=== PATIENT | male | born 1955 | race Caucasian/White ===

== ENCOUNTER 2016-05-03 13:50 | Inpatient (IN) | payer BC, OTHER ==
[~2016-05-03] VITALS: Ht 172.7 cm; Wt 83.1 kg
[2016-05-03 14:30] LABS: BASO % 0.1 %; BASO ABS # 0.01 K/uL (0-0.2); COMPLETE YES; EOS % 0.4 %; HEMATOCRIT 45.1 % (42-52); IG% 0.1 %; LYMPH % 21.8 %; LYMPH ABS # 1.48 K/uL (1.2-3.4); MEAN CELL VOLUME 91.3 fL (80-100); MEAN CORPUSCULAR HEMOGLOBIN 32.2 pg (25-34); MEAN CORPUSCULAR HGB CONC 35.3 g/dl (32-36); MEAN PLATELET VOLUME 10.3 fL (7.4-10.4); MONO % 6.5 %; NEUT % 71.1 %; PLATELET COUNT 264 K/uL (130-400); RED BLOOD COUNT 4.94 M/uL (4.7-6.1)
[2016-05-03 14:36] LABS: BLOOD UREA NITROGEN 13 mg/dl (7-18); CREATININE 0.92 mg/dl (0.60-1.40); GLUCOSE 96 mg/dl (70-99)
[2016-05-03 14:37] LABS: BUN/CREATININE RATIO 13.9 (10-20); CARBON DIOXIDE 24 mmol/L (21-32); CHLORIDE 106 mmol/L (98-107); POTASSIUM 3.7 mmol/L (3.5-5.1); SODIUM 140 mmol/L (136-145)
[2016-05-03 14:38] LABS: PROTHROMBIN TIME (PATIENT) 10.6 SECONDS (9.0-12.0)
[2016-05-03 14:41] LABS: CKMB/CK RATIO 1.8 (0-3.0)
--- NOTE | 2016-05-03 14:55 | DIAGNOSTIC IMAGING REPORT ---
CT OF THE HEAD WITHOUT CONTRAST CLINICAL HISTORY: Stroke COMPARISON STUDY: No previous studies for comparison. CT DOSE: 614.27 mGy.cm TECHNIQUE: Helical axial images of the head were obtained without IV contrast. Automated exposure control was utilized for the study. FINDINGS: No acute intracranial hemorrhage, midline shift or mass effect is present. There is a 4.2 x 2.7 cm hypodense focus within the left occipital lobe with loss of villegas-white differentiation. The ventricular system is normal. The basilar cisterns are patent. There are no extra-axial collections. There is moderate mucosal thickening of the left sphenoid sinus. Mastoid air cells are clear. IMPRESSION: 4.2 x 2.7 cm hypodensity within the left occipital lobe with loss of villegas-white differentiation which suggests an acute to subacute infarct. No hemorrhage or significant mass effect. Electronically signed by: Ishaan Teixeira M.D. 05/03/2016 2:54 PM Dictated Date/Time: 05/03/2016 2:49 PM
[2016-05-03] MEDS ORDERED: PHARMACIST DISCHARGE MED REC CONSULT PRN (15:45)
[2016-05-03] MEDS ORDERED: ONDANSETRON INJ 2 MG/ML 2 ML VIAL IV PRN (15:45)
[2016-05-03] MEDS ORDERED: ASPIRIN 325 MG ECTAB PO ONE (16:00)
[2016-05-03 16:10] VITALS: O2SAT 96; Ht 172.7 cm; Wt 83.1 kg
--- NOTE | 2016-05-03 16:36 | History and Physical ---
History & Physical Date & Time of Service: May 03, 2016 at 16:09 Chief Complaint: Right Visual Field Defect Primary Care Physician: Victor Hugo Zacarias M.D. History of Present Illness 60 year old female who presents to the ER with right visual field deficit. 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 Patient reports his symptoms began yesterday afternoon while he was driving his truck. He reports he noticed having difficulty seeing his right visual field. He noticed that it was with objects that were close and also only when both eyes were open. When he would close one eye the symptoms resolved. He also reports an associated left temporal headache. He denies any blurred vision or double vision. He reports he felt fatigued yesterday. He denies any unilateral weakness, numbness, or tingling. He notes left calf pain a couple of days ago that has since resolved. He was evaluated by his eye doctor today who was concerned for CVA and sent the patient to the ER for further evaluation. Patient denies chest pain and shortness of breath. No lightheadedness, dizziness , diaphoresis, or syncopal events. He denies abdominal pain, nausea, vomiting, or diarrhea. No fever or chills. Denies any urinary symptoms. In the ER, patient had a CT head that is showing left occipital lobe CVA. Past Medical/Surgical History Surgical Problems: (1) H/O hernia repair Status: Chronic Family History FH: multiple myeloma FATHER Social History Smoking Status: Former Smoker Alcohol Use: occasionally Immunizations History of Influenza Vaccine: Yes Influenza Vaccine Date: Jan 19, 2016 History of Tetanus Vaccine?: Yes Tetanus Immunization Date: Jul 26, 2009 Allergies Coded Allergies: No Known Allergies (Unverified , 05/03/16) Home Medications No Active Prescriptions or Reported Meds Review of Systems 10 point review of systems was completed with the pertinent positives and negatives noted per the HPI Physical Exam Vital Signs Date Time Temp Pulse Resp B/P Pulse Ox O2 Delivery O2 Flow Rate FiO2 05/03/16 15:28 153/87 05/03/16 15:20 60 19 96 05/03/16 15:01 163/87 05/03/16 14:55 175/81 05/03/16 14:33 83 20 161/93 96 Room Air 05/03/16 14:23 161/93 1/18/17 14:20 79 16 05/03/16 14:17 77 05/03/16 13:54 36.8 77 18 159/89 95 Room Air General Appearance: WD/WN, no apparent distress Head: normocephalic, atraumatic Eyes: normal inspection, PERRL, EOMI, + pertinent finding (Anisocoria, Decreased visual field ) ENT: normal ENT inspection, hearing grossly normal, TMs normal, pharynx normal Neck: supple, no adenopathy, trachea midline Respiratory/Chest: chest non-tender, lungs clear, normal breath sounds, no respiratory distress, no accessory muscle use Cardiovascular: regular rate, rhythm, no edema, no gallop, no JVD, no murmur, normal peripheral pulses Abdomen/GI: normal bowel sounds, non tender, soft, no organomegaly, no pulsatile mass Back: normal inspection, no CVA tenderness Extremities/Musculoskelatal: normal inspection, no calf tenderness, no pedal edema, non-tender, pelvis stable Neurologic/Psych: 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 tested, alert, normal mood/affect, normal reflexes, oriented x 3, + pertinent finding (Anisocoria, Decreased visual field) Skin: normal color, warm/dry, no rash Lymphatic: no adenopathy Diagnostics Laboratory Results Results Past 24 Hours Test 05/03/16 14:10 Range/Units White Blood Count 6.80 4.8-10.8 K/uL Red Blood Count 4.94 4.7-6.1 M/uL Hemoglobin 15.9 14.0-18.0 g/dL Hematocrit 45.1 42-52 % Mean Corpuscular Volume 91.3 80-100 fL Mean Corpuscular Hemoglobin 32.2 25-34 pg Mean Corpuscular Hemoglobin Concent 35.3 32-36 g/dl Platelet Count 264 130-400 K/uL Mean Platelet Volume 10.3 7.4-10.4 fL Neutrophils (%) (Auto) 71.1 % Lymphocytes (%) (Auto) 21.8 % Monocytes (%) (Auto) 6.5 % Eosinophils (%) (Auto) 0.4 % Basophils (%) (Auto) 0.1 % Neutrophils # (Auto) 4.83 1.4-6.5 K/uL Lymphocytes # (Auto) 1.48 1.2-3.4 K/uL Monocytes # (Auto) 0.44 0.11-0.59 K/uL Eosinophils # (Auto) 0.03 0-0.5 K/uL Basophils # (Auto) 0.01 0-0.2 K/uL RDW Standard Deviation 44.0 36.4-46.3 fL RDW Coefficient of Variation 13.2 11.5-14.5 % Immature Granulocyte % (Auto) 0.1 % Immature Granulocyte # (Auto) 0.01 0.00-0.02 K/uL Prothrombin Time 10.6 9.0-12.0 SECONDS Prothromb Time International Ratio 1.0 0.9-1.1 Activated Partial Thromboplast Time 25.2 21.0-31.0 SECONDS Partial Thromboplastin Ratio 1.0 Sodium Level 140 136-145 mmol/L Potassium Level 3.7 3.5-5.1 mmol/L Chloride Level 106 98-107 mmol/L Carbon Dioxide Level 24 21-32 mmol/L Anion Gap 10.0 3-11 mmol/L Blood Urea Nitrogen 13 7-18 mg/dl Creatinine 0.92 0.60-1.40 mg/dl Est Creatinine Clear Calc Drug Dose 89.8 ml/min Estimated GFR () 103.7 Estimated GFR (Non- 89.5 BUN/Creatinine Ratio 13.9 10-20 Random Glucose 96 70-99 mg/dl Calcium Level 9.0 8.5-10.1 mg/dl Total Creatine Kinase 129 39-308 U/L Creatine Kinase MB 2.3 0.5-3.6 ng/ml Creatine Kinase MB Ratio 1.8 0-3.0 Troponin I < 0.015 0-0.045 ng/ml Diagnostic Radiology CT HEAD IMPRESSION: 4.2 x 2.7 cm hypodensity within the left occipital lobe with loss of villegas-white differentiation which suggests an acute to subacute infarct. No hemorrhage or significant mass effect. 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 He states noticing difficulty seeing in his right visual field which started at yesterday afternoon. He visited an [facility] who diagnosed him to have Hemianopsia, central quadrantopia and suggested to get further eval to r/o CVA. Patient had CT head which showed left occipital lobe CVA. Also states associated mild left sided temporal headache and left calf pain 2 days ago. He is a former smoker and quit 30 yrs ago. Denies any other relevant positive history. Physical Exam: Vital signs as noted above General: WB/WN. no distress HEENT: NC/AT, EOMI, PERRLA, Anisocoria, + visual field defect Neck: Supple, No JVD CVS: s1, S2, No murmur Resp: CTA, no accessory muscle use Abd: Soft, Non tender, BS present, no organomegaly DIRECTOR OF REHABILITATION: No focal deficits other than + Anisocoria, + visual field defect Ext: No cyanosis, clubbing, pedal edema Skin: Warm, intact Lymphadenopathy: No lymphadenopathy noted Assessment and Plan: Acute Left occipital lobe CVA: Not a candidate for tPA: out of window period Start on Aspirin, Lipitor Stroke work up including MRI/MRA, Echo, Venous duplex LE Neuro checks, Neurology consult Check lipid panel Agree with assessment and plan of Barb Go NP VTE Prophylaxis VTE Risk Assessment Done? Y/N: Yes Risk Level: Moderate
--- NOTE | 2016-05-03 17:14 | DIAGNOSTIC IMAGING REPORT ---
Brain MRA HISTORY: Stroke - Attention to [place] TECHNIQUE: 3-D [id number] MRA of the brain was performed without contrast. COMPARISON STUDY: None. FINDINGS: Visualized intracranial internal carotid arteries, distal vertebral arteries, and basilar artery are widely patent. There is no significant stenosis, occlusion, or aneurysm seen within the bilateral ACAs, MCAs, or er manager. IMPRESSION: No significant stenosis, occlusion, or aneurysm within the [place]. Electronically signed by: Luther Berrios M.D. 05/03/2016 5:12 PM Dictated Date/Time: 05/03/2016 5:10 PM
--- NOTE | 2016-05-03 17:28 | EMERGENCY ROOM VISIT NOTE ---
History First contact with patient: 14:00 Chief Complaint: HYPERTENSION Stated Complaint: HIGH BLOOD PRESSURE History of Present Illness The patient is a 60 year old male who presents to the Emergency Room with complaints of a visual field defect. 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 He states that he initially thought that the symptoms would resolve, but they were persisting when he woke up this morning. He went to the chiropractor, thinking that there may be an issue with his neck, but states that nothing resolved. He then made an appointment with his education paraprofessional. He states that he was told his blood pressure was high and that there were issues with his vision which could indicate that he had a stroke. The patient has persistent visual field defects in the right side of his vision. He denies any other symptoms. He denies any past medical history and does not take any medications on a daily basis. The patient denies headache, neck pain, chest pain, shortness of breath, numbness, weakness, confusion, or slurred speech. Review of Systems A complete 10-point Review of Systems was discussed with the patient, with pertinent positives and negatives listed in the History of Present Illness. All remaining Review of Systems questions can be considered negative unless otherwise specified. Past Medical/Surgical History Surgical Problems: (1) H/O hernia repair Family History FH: multiple myeloma FATHER Social History Smoking Status: Former Smoker Current/Historical Medications No Active Prescriptions or Reported Meds Allergies Coded Allergies: No Known Allergies (Unverified , 05/03/16) Physical Exam Vital Signs Date Time Temp Pulse Resp B/P Pulse Ox O2 Delivery O2 Flow Rate FiO2 05/03/16 16:30 184/91 05/03/16 16:28 63 20 97 05/03/16 16:23 69 24 96 05/03/16 16:10 96 Room Air 05/03/16 15:28 153/87 05/03/16 15:20 60 19 96 05/03/16 15:01 163/87 05/03/16 14:55 175/81 05/03/16 14:33 83 20 161/93 96 Room Air 05/03/16 14:23 161/93 05/03/16 14:20 79 16 05/03/16 14:17 77 05/03/16 13:54 36.8 77 18 159/89 95 Room Air Pain Rating (0-10): 0 Physical Exam VITALS: Vitals are noted on the nurse's note and reviewed by myself. Vital signs stable. GENERAL: This is a 60-year-old male, in no acute distress, nondiaphoretic, well- developed well-nourished. SKIN: The skin was without rashes, erythema, edema, or bruising. There is no tenting of the skin. Capillary reflex less than 2 seconds. HEAD: Normocephalic atraumatic. EARS: External auditory canals clear, tympanic membranes pearly villegas without erythema or effusion bilaterally. EYES: Pupils equal round and reactive to light and accommodation. Extraocular movements intact. There is a reported right sided visual field defect. MOUTH: Mucous membranes moist. Tonsils are not enlarged. Pharynx without erythema or exudate. Tongue does not deviate. NECK: Supple without nuchal rigidity. No lymphadenopathy. No thyromegaly. Cervical spine is nontender. No JVD. HEART: Regular rate and rhythm without murmurs gallops or rubs. LUNGS: Clear to auscultation bilaterally without wheezes, rales or rhonchi. No dullness to percussion. ABDOMEN: Soft, nontender. MUSCULOSKELETAL: No muscle atrophy, erythema, or edema noted. Full range of motion without joint tenderness in all extremities. No tenderness to palpation. Normal gait. Strength 5/5 throughout. NEURO: Patient was alert and oriented to person place and time. NIH score of 1. Normal sensation to light and sharp touch. Deep tendon reflexes 2+ throughout. Negative Romberg and pronator drift. Normal rapid alternating movements. Normal finger to nose testing. Facial expressions are intact. Medical Decision & Procedures ER Provider Diagnostic Interpretation: CT OF THE HEAD WITHOUT CONTRAST CLINICAL HISTORY: Stroke COMPARISON STUDY: No previous studies for comparison. CT DOSE: 614.27 mGy.cm TECHNIQUE: Helical axial images of the head were obtained without IV contrast. Automated exposure control was utilized for the study. FINDINGS: No acute intracranial hemorrhage, midline shift or mass effect is present. There is a 4.2 x 2.7 cm hypodense focus within the left occipital lobe with loss of villegas-white differentiation. The ventricular system is normal. The basilar cisterns are patent. There are no extra-axial collections. There is moderate mucosal thickening of the left sphenoid sinus. Mastoid air cells are clear. IMPRESSION: 4.2 x 2.7 cm hypodensity within the left occipital lobe with loss of villegas-white differentiation which suggests an acute to subacute infarct. No hemorrhage or significant mass effect. Laboratory Results 05/03/16 14:10 Red Blood Count 4.94, Mean Corpuscular Volume 91.3, Mean Corpuscular Hemoglobin 32.2, Mean Corpuscular Hemoglobin Concent 35.3, Mean Platelet Volume 10.3, Neutrophils (%) (Auto) 71.1, Lymphocytes (%) (Auto) 21.8, Monocytes (%) (Auto) 6.5, Eosinophils (%) (Auto) 0.4, Basophils (%) (Auto) 0.1, Neutrophils # (Auto) 4.83, Lymphocytes # (Auto) 1.48, Monocytes # (Auto) 0.44, Eosinophils # (Auto) 0.03, Basophils # (Auto) 0.01 05/03/16 14:10 Test 05/03/16 14:10 White Blood Count 6.80 K/uL (4.8-10.8) Red Blood Count 4.94 M/uL (4.7-6.1) Hemoglobin 15.9 g/dL (14.0-18.0) Hematocrit 45.1 % (42-52) Mean Corpuscular Volume 91.3 fL (80-100) Mean Corpuscular Hemoglobin 32.2 pg (25-34) Mean Corpuscular Hemoglobin Concent 35.3 g/dl (32-36) Platelet Count 264 K/uL (130-400) Mean Platelet Volume 10.3 fL (7.4-10.4) Neutrophils (%) (Auto) 71.1 % Lymphocytes (%) (Auto) 21.8 % Monocytes (%) (Auto) 6.5 % Eosinophils (%) (Auto) 0.4 % Basophils (%) (Auto) 0.1 % Neutrophils # (Auto) 4.83 K/uL (1.4-6.5) Lymphocytes # (Auto) 1.48 K/uL (1.2-3.4) Monocytes # (Auto) 0.44 K/uL (0.11-0.59) Eosinophils # (Auto) 0.03 K/uL (0-0.5) Basophils # (Auto) 0.01 K/uL (0-0.2) RDW Standard Deviation 44.0 fL (36.4-46.3) RDW Coefficient of Variation 13.2 % (11.5-14.5) Immature Granulocyte % (Auto) 0.1 % Immature Granulocyte # (Auto) 0.01 K/uL (0.00-0.02) Prothrombin Time 10.6 SECONDS (9.0-12.0) Prothromb Time International Ratio 1.0 (0.9-1.1) Activated Partial Thromboplast Time 25.2 SECONDS (21.0-31.0) Partial Thromboplastin Ratio 1.0 Anion Gap 10.0 mmol/L (3-11) Est Creatinine Clear Calc Drug Dose 89.8 ml/min Estimated GFR () 103.7 Estimated GFR (Non- 89.5 BUN/Creatinine Ratio 13.9 (10-20) Calcium Level 9.0 mg/dl (8.5-10.1) Total Creatine Kinase 129 U/L (39-308) Creatine Kinase MB 2.3 ng/ml (0.5-3.6) Creatine Kinase MB Ratio 1.8 (0-3.0) Troponin I < 0.015 ng/ml (0-0.045) ECG Rate (beats per minute): 65 Rhythm: normal sinus Findings: other (LVH, incomplete RBBB) Comparison ECG Date: no prior available Medical Decision Differential diagnosis includes CVA, TIA, intracranial hemorrhage, intracranial lesion, mass effect, infection, among others. The patient was evaluated as above. Labs were drawn and IV access was obtained. Imaging studies were performed and read by radiology as above. The patient was reassessed multiple times during their stay in the emergency department and remained in stable condition. The patient is a 60-year-old male who presents today complaining of a visual field defect. The patient had seen his education paraprofessional, who had been concerned about an left occipital lobe stroke and sent him here for further evaluation. The patient has no other neurological deficits on examination. CT of the head did show findings consistent with an acute to subacute left occipital lobe CVA. Labs were obtained and are unremarkable. EKG was interpreted by myself and showed a normal sinus rhythm with no evidence of acute ischemia. The patient will be admitted for further evaluation. Case was discussed with CAROLE Weiss with the [facility]. She agreed to evaluate the patient. The patient's case was reviewed with Dr. Staples, ED attending physician, who agreed with my assessment and treatment plan. Impression Primary Impression: CVA (cerebral vascular accident) Departure Information Prescriptions No Active Prescriptions or Reported Meds Referrals Victor Hugo Zacarias M.D. (PCP) Patient Instructions My [facility]
[2016-05-03] MEDS ORDERED: MAGNEVIST IV PRN (17:45)
--- NOTE | 2016-05-03 18:17 | DIAGNOSTIC IMAGING REPORT ---
BILATERAL LOWER EXTREMITY VENOUS DOPPLER HISTORY: Bilateral calf pain COMPARISON STUDY: None. FINDINGS: There is normal compressibility, flow, and augmentation within the bilateral lower extremity deep venous systems. IMPRESSION: No DVT within the right or left lower extremity. Electronically signed by: Luther Berrios M.D. 05/03/2016 6:15 PM Dictated Date/Time: 05/03/2016 6:15 PM
[2016-05-03 18:37] VITALS: BP 174/89; PULSE 59; TEMP 36.8; O2SAT 96
[2016-05-03] MEDS: ATORVASTATIN 40 MG TAB PO SCH (19:29)
--- NOTE | 2016-05-03 19:59 | DIAGNOSTIC IMAGING REPORT ---
NECK MRA HISTORY: Left occipital lobe infarct. TECHNIQUE: [id number] and gadolinium-enhanced MRA of the neck was performed both before and after the intravenous administration of contrast. All measurements were calculated based on NASCET criteria. COMPARISON STUDY: None. FINDINGS: The aortic arch and proximal great vessels are widely patent. There is no significant stenosis, occlusion, or dissection identified within the bilateral common carotid, internal carotid, or vertebral arteries. Focal fenestration at the proximal basilar artery. IMPRESSION: No significant stenosis, occlusion, or dissection identified within the carotid or vertebral arteries. Incidental is made of a focal fenestration at the proximal basilar artery. Electronically signed by: Luther Berrios M.D. 05/03/2016 7:57 PM Dictated Date/Time: 05/03/2016 7:54 PM
[2016-05-03 20:23] VITALS: BP_SYST 162; BP_SYST 164; BP_DIAS 83; BP_DIAS 86; PULSE 63; TEMP 36.9; O2SAT 92
[2016-05-03] MEDS: ACETAMINOPHEN 325 MG TAB PO PRN (21:16)
[2016-05-03 23:42] VITALS: BP 138/75; PULSE 56; TEMP 36.8; O2SAT 95
[2016-05-04] VITALS (7 sets, daily range): BP systolic 126–160; BP diastolic 76–87; PULSE 59–72; TEMP 36.8–37.2; O2SAT 93–97
[2016-05-04 06:54] LABS: BASO % 0.1 %; BASO ABS # 0.01 K/uL (0-0.2); COMPLETE YES; EOS % 1.2 %; HEMATOCRIT 43.2 % (42-52); IG% 0.1 %; LYMPH ABS # 1.75 K/uL (1.2-3.4); MEAN CELL VOLUME 91.7 fL (80-100); MEAN CORPUSCULAR HEMOGLOBIN 31.6 pg (25-34); MEAN CORPUSCULAR HGB CONC 34.5 g/dl (32-36); MEAN PLATELET VOLUME 10.1 fL (7.4-10.4); MONO % 8.3 %; NEUT % 64.3 %; PLATELET COUNT 231 K/uL (130-400); RED BLOOD COUNT 4.71 M/uL (4.7-6.1); WHITE BLOOD COUNT 6.73 K/uL (4.8-10.8)
[2016-05-04 06:55] LABS: ESTIMATED AVERAGE GLUCOSE 114 mg/dl; HA1C FLAG Normal (Normal)
[2016-05-04 07:22] LABS: BUN/CREATININE RATIO 13.3 (10-20); CALCIUM 8.6 mg/dl (8.5-10.1); CREATININE 0.83 mg/dl (0.60-1.40); POTASSIUM 3.8 mmol/L (3.5-5.1)
[2016-05-04 07:26] LABS: CHOLESTEROL/HDL RATIO 3.3
[2016-05-04] MEDS: ATORVASTATIN 40 MG TAB PO SCH (07:56)
[2016-05-04] MEDS: ASPIRIN 81 MG ECTAB PO SCH (07:56)
--- NOTE | 2016-05-04 08:43 | DIAGNOSTIC IMAGING REPORT ---
Brain MRI WITH AND WITHOUT CONTRAST HISTORY: Blurry vision. Stroke TECHNIQUE: Multiplanar multisequence MRI of the brain was performed both before and after the intravenous administration of contrast. COMPARISON STUDY: Head CT 05/03/2016. FINDINGS: Confirmation of the 3.7 x 2.0 cm acute infarct within the left posterior medial occipital lobe. This is consistent with an acute distal left SENIOR APPLICATIONS ENGINEER territory infarct. The midline structures appear intact. There is a retention cyst within the left maxillary sinus and mild dorsal thickening within the left sphenoid sinus. The mastoid air cells are clear. Cytotoxic edema within the left occipital lobe at the site of infarct. The ventricles are normal in size. No significant mass effect or midline shift. No intracranial hemorrhage. No masses identified. The major vascular flow-voids at the skull base are well-maintained. Multiple scattered foci of T2 hyperintensity seen within the periventricular and subcortical white matter. These are nonspecific but favor mild microvascular ischemic change. Faint enhancement at the left occipital infarct. IMPRESSION: Confirmation of the left occipital lobe infarct. Faint patchy enhancement at the area of infarct favors normal post infarct changes. Follow-up brain MRI in 3 months can be performed to ensure resolution. Electronically signed by: Luther Berrios M.D. 05/03/2016 7:53 PM Dictated Date/Time: 05/03/2016 7:47 PM
[2016-05-04] MEDS: ACETAMINOPHEN 325 MG TAB PO PRN (11:14)
--- NOTE | 2016-05-04 11:49 | Progress Note ---
Subjective Date of Service: May 04, 2016. Subjective Pt evaluation today including: conversation w/ patient, physical exam, lab review, review of studies, review of inpatient medication list Saw/examined the patient in room 275 States his right visual field defect persists today No other symptoms to note Problem List Medical Problems: (1) CVA (cerebral vascular accident) Status: Acute Review of Systems Constitutional: No chills, No fever Eyes: + problem reported (right vision changes since admission) Respiratory: No cough, No shortness of breath, No sputum Cardiac: No chest pain, No edema, No palpitations Abdomen: No diarrhea, No nausea, No pain, No vomiting Neurologic: No balance problems, No memory loss, No numbness/tingling, No paralysis, No vertigo, No weakness Heme: No abnormal bleeding/bruising Medications Current Inpatient Medications Medications (Trade) Dose Ordered Sig/Florin Route Start Time Stop Time Status Last Admin Dose Admin Acetaminophen (Tylenol Tab) 650 mg Q4H PRN PO 05/03/16 15:45 06/02/16 15:44 05/04/16 11:14 650 MG Ondansetron HCl (Zofran Inj) 4 mg Q6H PRN IV 05/03/16 15:45 06/02/16 15:44 Miscellaneous Information (Pharmacist Discharge Med Rec Consult) 1 ea UD PRN N/A 05/03/16 15:45 06/02/16 15:44 Aspirin (Ecotrin Tab) 81 mg QAM PO 05/04/16 09:00 06/03/16 08:59 05/04/16 07:56 81 MG Atorvastatin Calcium (Lipitor Tab) 40 mg QAM PO 05/03/16 16:00 06/02/16 15:59 05/04/16 07:56 40 MG Gadopentetate Dimeglumine (Magnevist) 20 ml UD PRN IV 05/03/16 17:45 05/07/16 17:44 Objective Vital Signs Date Time Temp Pulse Resp B/P Pulse Ox O2 Delivery O2 Flow Rate FiO2 05/04/16 08:00 Room Air 05/04/16 07:35 37.2 61 18 160/83 95 Room Air 05/04/16 04:15 36.8 59 18 142/76 97 Room Air 05/04/16 04:00 Room Air 05/04/16 00:00 Room Air 05/03/16 23:42 36.8 56 16 138/75 95 Room Air 05/03/16 20:23 36.9 63 18 162/86 92 Room Air 164/83 05/03/16 20:00 Room Air 05/03/16 18:37 36.8 59 16 174/89 96 Room Air 05/03/16 16:30 184/91 05/03/16 16:28 63 20 97 05/03/16 16:23 69 24 96 05/03/16 16:10 96 Room Air 05/03/16 15:28 153/87 05/03/16 15:20 60 19 96 05/03/16 15:01 163/87 05/03/16 14:55 175/81 05/03/16 14:33 83 20 161/93 96 Room Air 05/03/16 14:23 161/93 05/03/16 14:20 79 16 05/03/16 14:17 77 05/03/16 13:54 36.8 77 18 159/89 95 Room Air Physical Exam General Appearance: no apparent distress Eyes: normal inspection, PERRL, EOMI ENT: hearing grossly normal Neck: supple Respiratory/Chest: chest non-tender, lungs clear, normal breath sounds, no respiratory distress, no accessory muscle use Cardiovascular: regular rate, rhythm, no edema, no murmur Abdomen: normal bowel sounds, non tender, soft Extremities: normal inspection, no pedal edema Neurologic/Psychiatric: exercise physiologist II-XII nml as tested, no motor/sensory deficits, alert, normal mood/affect, oriented x 3 Skin: normal color Lymphatic: no adenopathy Laboratory Results Last 24 Hours Test 05/03/16 14:10 05/04/16 06:28 White Blood Count 6.80 K/uL 6.73 K/uL Red Blood Count 4.94 M/uL 4.71 M/uL Hemoglobin 15.9 g/dL 14.9 g/dL Hematocrit 45.1 % 43.2 % Mean Corpuscular Volume 91.3 fL 91.7 fL Mean Corpuscular Hemoglobin 32.2 pg 31.6 pg Mean Corpuscular Hemoglobin Concent 35.3 g/dl 34.5 g/dl Platelet Count 264 K/uL 231 K/uL Mean Platelet Volume 10.3 fL 10.1 fL Neutrophils (%) (Auto) 71.1 % 64.3 % Lymphocytes (%) (Auto) 21.8 % 26.0 % Monocytes (%) (Auto) 6.5 % 8.3 % Eosinophils (%) (Auto) 0.4 % 1.2 % Basophils (%) (Auto) 0.1 % 0.1 % Neutrophils # (Auto) 4.83 K/uL 4.32 K/uL Lymphocytes # (Auto) 1.48 K/uL 1.75 K/uL Monocytes # (Auto) 0.44 K/uL 0.56 K/uL Eosinophils # (Auto) 0.03 K/uL 0.08 K/uL Basophils # (Auto) 0.01 K/uL 0.01 K/uL RDW Standard Deviation 44.0 fL 44.1 fL RDW Coefficient of Variation 13.2 % 13.2 % Immature Granulocyte % (Auto) 0.1 % 0.1 % Immature Granulocyte # (Auto) 0.01 K/uL 0.01 K/uL Prothrombin Time 10.6 SECONDS Prothromb Time International Ratio 1.0 Activated Partial Thromboplast Time 25.2 SECONDS Partial Thromboplastin Ratio 1.0 Sodium Level 140 mmol/L 141 mmol/L Potassium Level 3.7 mmol/L 3.8 mmol/L Chloride Level 106 mmol/L 107 mmol/L Carbon Dioxide Level 24 mmol/L 25 mmol/L Anion Gap 10.0 mmol/L 9.0 mmol/L Blood Urea Nitrogen 13 mg/dl 11 mg/dl Creatinine 0.92 mg/dl 0.83 mg/dl Est Creatinine Clear Calc Drug Dose 89.8 ml/min 98.8 ml/min Estimated GFR () 103.7 110.1 Estimated GFR (Non- 89.5 95.0 BUN/Creatinine Ratio 13.9 13.3 Random Glucose 96 mg/dl 100 mg/dl Estimated Average Glucose 114 mg/dl Hemoglobin A1c 5.6 % Calcium Level 9.0 mg/dl 8.6 mg/dl Total Creatine Kinase 129 U/L Creatine Kinase MB 2.3 ng/ml Creatine Kinase MB Ratio 1.8 Troponin I < 0.015 ng/ml Triglycerides Level 58 mg/dl Cholesterol Level 134 mg/dl HDL Cholesterol 41 mg/dl LDL Cholesterol, Calculated 81 mg/dl VLDL Cholesterol, Calculated 12 mg/dl Cholesterol/HDL Ratio 3.3 Assessment and Plan This is a 60 year old male presented with L occipital lobe infarct Acute Left Occipital Lobe Infarct * Head CT; Brain MRI confirmed the infarct * No motor dysfunction, no ambulation issues; no swallowing issues * Was not on any medications prior to arrival * started on aspirin and statin * would monitor on tele to r/o arrhythmias * neurology input for further recommendations DVT ppx * subq heparin FULL CODE
[2016-05-04] MEDS: HEPARIN SOD 5000 UNIT/0.5 ML CARP SQ SCH ×2 (13:52→22:20)
[2016-05-04] MEDS ORDERED: CLOPIDOGREL BISULFATE 75 MG TAB PO ONE (15:45)
--- NOTE | 2016-05-04 15:59 | Neurology Consultation ---
Neurology Consultation Date of Consultation: May 04, 2016. Attending Physician: Clive Hampton DO Primary Care Physician: Victor Hugo Zacarias M.D. Reason for Consultation: left occipital lobe CVA History of Present Illness Source: patient, spouse 60 year old male who on Sunday noticed he had neck and head pain and went to a chiropractor. His also made him an appointment to see an certified energy manager who recommended he go to the ED due to possible stroke. His blood pressure was 195/90 at the office. He also states he had a headache which was in the back of his head down his neck. 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 He has no PMH of vascular disease or heart disease. He was on no medications and did not take aspirin prior to the event. denies CP, SOB, abdominal pain, one sided weakness, numbness, tingling, N, V, swallowing issues, falls. Past Medical/Surgical History Medical Problems: (1) CVA (cerebral vascular accident) Status: Acute Social History Smoking Status: Never smoker Alcohol Use: occasionally Allergies Coded Allergies: No Known Allergies (Unverified , 05/03/16) Current Inpatient Medications Current Inpatient Medications Medications (Trade) Dose Ordered Sig/Florin Route Start Time Stop Time Status Last Admin Dose Admin Acetaminophen (Tylenol Tab) 650 mg Q4H PRN PO 05/03/16 15:45 06/02/16 15:44 05/04/16 11:14 650 MG Ondansetron HCl (Zofran Inj) 4 mg Q6H PRN IV 05/03/16 15:45 06/02/16 15:44 Miscellaneous Information (Pharmacist Discharge Med Rec Consult) 1 ea UD PRN N/A 05/03/16 15:45 06/02/16 15:44 Aspirin (Ecotrin Tab) 81 mg QAM PO 05/04/16 09:00 06/03/16 08:59 05/04/16 07:56 81 MG Atorvastatin Calcium (Lipitor Tab) 40 mg QAM PO 05/03/16 16:00 06/02/16 15:59 05/04/16 07:56 40 MG Gadopentetate Dimeglumine (Magnevist) 20 ml UD PRN IV 05/03/16 17:45 05/07/16 17:44 Heparin Sodium (Porcine) (Heparin Sq 5000 Unit/0.5ml) 5,000 unit Q8 SQ 05/04/16 14:00 06/03/16 13:59 05/04/16 13:52 5,000 UNIT Physical Exam Vital Signs (Past 24 Hrs): Date Time Temp Pulse Resp B/P Pulse Ox O2 Delivery O2 Flow Rate FiO2 05/04/16 12:02 37.2 65 18 154/87 93 05/04/16 12:00 Room Air 05/04/16 08:00 Room Air 05/04/16 07:35 37.2 61 18 160/83 95 Room Air 05/04/16 04:15 36.8 59 18 142/76 97 Room Air 05/04/16 04:00 Room Air 05/04/16 00:00 Room Air 05/03/16 23:42 36.8 56 16 138/75 95 Room Air 05/03/16 20:23 36.9 63 18 162/86 92 Room Air 164/83 05/03/16 20:00 Room Air 05/03/16 18:37 36.8 59 16 174/89 96 Room Air 05/03/16 16:30 184/91 05/03/16 16:28 63 20 97 05/03/16 16:23 69 24 96 05/03/16 16:10 96 Room Air 05/03/16 15:28 153/87 Physical Exam: Constitutional:appearance nourished, healthy and normal Ears, Nose, Mouth and Throat: mucous membranes moist, no injection and skin normal, eyes normal Cardiovascular: normal S-1 and S-2 and regular rate and rhythm Respiratory: clear to auscultation (CTA) and no rales, rhonchi or wheeze Musculoskeletal: no peripheral edema and good distal pulses Skin: no stigmata of neurocutaneous disease noted and normal and intact Eyes: extraocular muscles intact (EOMI) and pupils equal, round and reactive to light (PERRL), right central homonymous quadrantopia vision cut NEUROLOGIC EXAMINATION: Mental status: Alert and interactive Oriented to full date and location Oriented to person Speech fluent with no evidence of aphasia Cranial Nerves smile and eye brow raise symmetric, tongue midline Reflexes: Deep tendon reflexes were symmetrical and graded 2/5. Plantar responses were flexor. Sensory: no sensory deficits, to vibration or cool touch Coordination: Romberg absent Gait/Stance: Posture normal. Gait normal: with steady with steps, base, turning, and tandem gait. Motor: Negative for pronator drift of out stretched arms with eyes closed. Strength: biceps triceps deltoids hand international bank manager bilaterally 5/5 hip flex ext plantar flex ext 5/5 bilaterally 5/5 Laboratory Results Past 24 Hours: 05/04/16 06:28 Red Blood Count 4.71, Mean Corpuscular Volume 91.7, Mean Corpuscular Hemoglobin 31.6, Mean Corpuscular Hemoglobin Concent 34.5, Mean Platelet Volume 10.1, Neutrophils (%) (Auto) 64.3, Lymphocytes (%) (Auto) 26.0, Monocytes (%) (Auto) 8.3, Eosinophils (%) (Auto) 1.2, Basophils (%) (Auto) 0.1, Neutrophils # (Auto) 4.32, Lymphocytes # (Auto) 1.75, Monocytes # (Auto) 0.56, Eosinophils # (Auto) 0.08, Basophils # (Auto) 0.01 05/04/16 06:28 Test 05/04/16 06:28 White Blood Count 6.73 K/uL (4.8-10.8) Red Blood Count 4.71 M/uL (4.7-6.1) Hemoglobin 14.9 g/dL (14.0-18.0) Hematocrit 43.2 % (42-52) Mean Corpuscular Volume 91.7 fL (80-100) Mean Corpuscular Hemoglobin 31.6 pg (25-34) Mean Corpuscular Hemoglobin Concent 34.5 g/dl (32-36) Platelet Count 231 K/uL (130-400) Mean Platelet Volume 10.1 fL (7.4-10.4) Neutrophils (%) (Auto) 64.3 % Lymphocytes (%) (Auto) 26.0 % Monocytes (%) (Auto) 8.3 % Eosinophils (%) (Auto) 1.2 % Basophils (%) (Auto) 0.1 % Neutrophils # (Auto) 4.32 K/uL (1.4-6.5) Lymphocytes # (Auto) 1.75 K/uL (1.2-3.4) Monocytes # (Auto) 0.56 K/uL (0.11-0.59) Eosinophils # (Auto) 0.08 K/uL (0-0.5) Basophils # (Auto) 0.01 K/uL (0-0.2) RDW Standard Deviation 44.1 fL (36.4-46.3) RDW Coefficient of Variation 13.2 % (11.5-14.5) Immature Granulocyte % (Auto) 0.1 % Immature Granulocyte # (Auto) 0.01 K/uL (0.00-0.02) Anion Gap 9.0 mmol/L (3-11) Est Creatinine Clear Calc Drug Dose 98.8 ml/min Estimated GFR () 110.1 Estimated GFR (Non- 95.0 BUN/Creatinine Ratio 13.3 (10-20) Calcium Level 8.6 mg/dl (8.5-10.1) Triglycerides Level 58 mg/dl (0-150) Cholesterol Level 134 mg/dl (0-200) HDL Cholesterol 41 mg/dl LDL Cholesterol, Calculated 81 mg/dl VLDL Cholesterol, Calculated 12 mg/dl Cholesterol/HDL Ratio 3.[address] head-4.2 x 2.7 cm hypodensity within the left occipital lobe with loss of villegas-white differentiation which suggests an acute to subacute infarct. No hemorrhage or significant mass effect. MRA neck- No significant stenosis, occlusion, or dissection identified within the carotid or vertebral arteries. Incidental is made of a focal fenestration at the proximal basilar artery. MRA-head-No significant stenosis, occlusion, or aneurysm within the [place]. MRI brain with and without- Confirmation of the left occipital lobe infarct. Faint patchy enhancement at the area of infarct favors normal post infarct changes. Follow-up brain MRI in 3 months can be performed to ensure resolution. venous doppler- No DVT within the right or left lower extremity. Impression 60 year old male s/p left occipital lobe infarct Plan 1. aspirin 81 mg started added plavix 75 mg today and will need to take daily x 3 months, after 3 months stop plavix 75mg 2. permissive hypertension 3. TTE pending 4. statin added 5. if no signs of a fib on TTE or valvular issues will need a cardio net as out patient 6. coag workup needed 7. will need to follow up with repeat MRI in 3 months for unusual pattern of stroke 8. further recommendations to follow Pt seen and examined. mrginal incongruous right superior quadrantnopsi, otherwise nml.No prior hx of TIA/sstroke. MRi/A reviewed L in home aide infarct without vascular stenosis. Certainly raises question of cardiac embolism. If echo noncontributory and no afib while inpt rec 1 month cardionet as outpt. Pt will need to be cleared by opthal before returning to driving. Will follow with you, PHYLLIS Martin MD I have seen and discuss above patient with Dr Barbie Martin, neurology
[2016-05-05] MEDS: ACETAMINOPHEN 325 MG TAB PO PRN (03:42)
[2016-05-05 04:23] VITALS: BP 152/87; PULSE 64; TEMP 36.6; O2SAT 94
[2016-05-05] MEDS: HEPARIN SOD 5000 UNIT/0.5 ML CARP SQ SCH (05:36)
[2016-05-05 06:48] LABS: BASO % 0.5 %; BASO ABS # 0.03 K/uL (0-0.2); COMPLETE YES; IG% 0.2 %; LYMPH % 37.3 %; LYMPH ABS # 2.37 K/uL (1.2-3.4); MEAN CELL VOLUME 91.3 fL (80-100); MEAN CORPUSCULAR HEMOGLOBIN 32.1 pg (25-34); MEAN CORPUSCULAR HGB CONC 35.1 g/dl (32-36); MEAN PLATELET VOLUME 10.2 fL (7.4-10.4); MONO % 7.5 %; NEUT % 52.5 %; PLATELET COUNT 245 K/uL (130-400); RED BLOOD COUNT 4.71 M/uL (4.7-6.1); WHITE BLOOD COUNT 6.36 K/uL (4.8-10.8)
[2016-05-05 07:08] VITALS: BP 143/83; PULSE 55; TEMP 36.8; O2SAT 92
[2016-05-05 07:17] LABS: BUN/CREATININE RATIO 15.2 (10-20); CALCIUM 8.6 mg/dl (8.5-10.1); CREATININE 0.82 mg/dl (0.60-1.40); POTASSIUM 3.8 mmol/L (3.5-5.1)
[2016-05-05] MEDS: ASPIRIN 81 MG ECTAB PO SCH (07:45)
[2016-05-05] MEDS: ATORVASTATIN 40 MG TAB PO SCH (07:45)
--- NOTE | 2016-05-05 08:02 | ECHOCARDIOGRAM REPORT ---
*NOTICE TO RECEIVING [employer] This information is strictly Confidential and protected under [place] law. [place] law prohibits you from making any further disclosure of this information unless further disclosure is expressly permitted by the written consent of the person to whom it pertains or is authorized by law. A general authorization for the release of medical or other information is not sufficient for this purpose. Hospital accepts no responsibility if the information is made available to any other person, INCLUDING THE PATIENT. Interpretation Summary * Name: ASMITA RIDER Study Date: 05/04/2016 08:17 AM BP: 138/75 mmHg * Patient Location: [facility]\S\N275\S\2 HR: 95 * : 1955 (M/d/yyyy) Gender: Male Height: 67 in * Age: 60 yrs Ethnicity: CA Weight: 188 lb * Ordering Physician: Barb Go * Referring Physician: Sabina Fuller O.D. * Performed By: Nathaly Rosenthal RDCS * * Reason For Study: CVA * BSA: 2.0 m2 * The study was technically adequate. * There is no comparison study available. * -- Conclusions -- * Ejection Fraction = 65-70%. * There is mild concentric left ventricular hypertrophy. * Grade I diastolic dysfunction, (abnormal relaxation pattern). * Injection of contrast documented no interatrial shunt. * No significant valvular pathology. * Mildly dilated ascending aorta. Procedure Details * A complete two-dimensional transthoracic echocardiogram was performed (2D, M-mode, Doppler and color flow Doppler). Left Ventricle * The left ventricle is normal in size. * There is mild concentric left ventricular hypertrophy. * Ejection Fraction = 65-70%. * Left ventricular systolic function is normal. * The left ventricular wall motion is normal. Right Ventricle * The right ventricle is normal size. * The right ventricular systolic function is normal as assessed by tricuspid annular plane systolic excursion (TAPSE) (normal >1.5 cm). Atria * The left atrium is mildly dilated. * Right atrial size is normal. * Injection of contrast documented no interatrial shunt. Mitral Valve * The mitral valve is normal. * There is no mitral valve stenosis. * Significant mitral regurgitation is absent. Tricuspid Valve * The tricuspid valve is normal. * There is no tricuspid stenosis. * Significant tricuspid regurgitation is absent. Aortic Valve * The aortic valve is trileaflet. * Aortic stenosis is absent. * There is no significant aortic regurgitation. Pulmonic Valve * The pulmonary valve is not well seen, but the Doppler examination is normal without significant regurgitation or stenosis. Great Vessels * The aortic root is normal size. * Mildly dilated ascending aorta. Pericardium/Pleural * There is no pericardial effusion. Great Vessels * Normal inferior vena cava diameter and respiratory variation suggests normal central venous pressure. Left Ventricular Diastolic Function * Grade I diastolic dysfunction, (abnormal relaxation pattern). MMode 2D Measurements and Calculations IVSd 1.2 cm IVSs 1.7 cm LVIDd 4.9 cm LVIDs 3.1 cm LVPWd 1.2 cm LVPWs 1.4 cm IVS/LVPW 0.95 FS 37.1 % EDV(Teich) 114.8 ml ESV(Teich) 38.1 ml EF(Teich) 66.8 % EDV(cubed) 120.4 ml ESV(cubed) 30.0 ml EF(cubed) 75.1 % % IVS thick 41.8 % % LVPW thick 15.1 % LV mass(C)d 230.9 grams LV mass(C)dI 117.2 grams/m\S\2 LV mass(C)s 173.7 grams LV mass(C)sI 88.2 grams/m\S\2 SV(Teich) 76.7 ml SI(Teich) 39.0 ml/m\S\2 SV(cubed) 90.4 ml SI(cubed) 45.9 ml/m\S\2 Ao root diam 3.4 cm Ao root area 8.9 cm\S\2 ACS 1.8 cm LA dimension 4.1 cm asc Aorta Diam 4.0 cm LA/Ao 1.2 LVAd ap4 26.8 cm\S\2 LVLd ap4 7.8 cm EDV(MOD-sp4) 79.8 ml EDV(sp4-el) 78.3 ml LVAs ap4 13.6 cm\S\2 LVLs ap4 6.4 cm ESV(MOD-sp4) 29.2 ml ESV(sp4-el) 24.7 ml EF(MOD-sp4) 63.5 % EF(sp4-el) 68.4 % LVAd ap2 21.7 cm\S\2 LVLd ap2 7.8 cm EDV(MOD-sp2) 52.8 ml EDV(sp2-el) 50.9 ml LVAs ap2 10.8 cm\S\2 LVLs ap2 6.3 cm ESV(MOD-sp2) 19.5 ml ESV(sp2-el) 15.7 ml EF(MOD-sp2) 63.0 % EF(sp2-el) 69.2 % LVLd %diff 0.64 % EDV(MOD-bp) 65.0 ml LVLs %diff -1.26 % ESV(MOD-bp) 23.6 ml EF(MOD-bp) 63.7 % SV(MOD-sp4) 50.7 ml SI(MOD-sp4) 25.7 ml/m\S\2 SV(MOD-sp2) 33.3 ml SI(MOD-sp2) 16.9 ml/m\S\2 SV(MOD-bp) 41.4 ml SI(MOD-bp) 21.0 ml/m\S\2 SV(sp4-el) 53.6 ml SI(sp4-el) 27.2 ml/m\S\2 SV(sp2-el) 35.2 ml SI(sp2-el) 17.9 ml/m\S\2 Doppler Measurements and Calculations MV E max akash 60.1 cm/sec MV A max akash 92.2 cm/sec MV E/A 0.65 MV dec time 0.22 sec Ao V2 max 182.2 cm/sec Ao max PG 13.3 mmHg Ao max PG (full) 4.7 mmHg LV V1 max PG 8.6 mmHg LV V1 max 146.8 cm/sec PA V2 max 125.5 cm/sec PA max PG 6.3 mmHg
[2016-05-05] MEDS ORDERED: CLOPIDOGREL BISULFATE 75 MG TAB PO SCH (09:00)
--- NOTE | 2016-05-05 10:39 | Progress Note ---
Subjective Date of Service: May 05, 2016. Subjective Pt evaluation today including: conversation w/ patient, physical exam, lab review, review of studies, review of inpatient medication list Saw/examined the patient in room 275 doing well today continues to have right eye blurriness no weakness/muscle strength issues to note Denies chest pain/palpitations Problem List Medical Problems: (1) CVA (cerebral vascular accident) Status: Acute Review of Systems Constitutional: No chills, No fever Eyes: + see HPI, + worsening of vision Respiratory: No cough, No shortness of breath, No sputum Cardiac: No chest pain, No edema, No palpitations Abdomen: No diarrhea, No nausea, No pain, No vomiting Heme: No abnormal bleeding/bruising Medications Current Inpatient Medications Medications (Trade) Dose Ordered Sig/Floirn Route Start Time Stop Time Status Last Admin Dose Admin Acetaminophen (Tylenol Tab) 650 mg Q4H PRN PO 05/03/16 15:45 06/02/16 15:44 05/05/16 03:42 650 MG Ondansetron HCl (Zofran Inj) 4 mg Q6H PRN IV 05/03/16 15:45 06/02/16 15:44 Miscellaneous Information (Pharmacist Discharge Med Rec Consult) 1 ea UD PRN N/A 05/03/16 15:45 06/02/16 15:44 Aspirin (Ecotrin Tab) 81 mg QAM PO 05/04/16 09:00 06/03/16 08:59 05/05/16 07:45 81 MG Atorvastatin Calcium (Lipitor Tab) 40 mg QAM PO 05/03/16 16:00 06/02/16 15:59 05/05/16 07:45 40 MG Gadopentetate Dimeglumine (Magnevist) 20 ml UD PRN IV 05/03/16 17:45 05/07/16 17:44 Heparin Sodium (Porcine) (Heparin Sq 5000 Unit/0.5ml) 5,000 unit Q8 SQ 05/04/16 14:00 06/03/16 13:59 05/05/16 05:36 5,000 UNIT Clopidogrel Bisulfate (plAVix TAB) 75 mg QAM PO 05/05/16 09:00 06/04/16 08:59 05/05/16 07:45 75 MG Objective Vital Signs Date Time Temp Pulse Resp B/P Pulse Ox O2 Delivery O2 Flow Rate FiO2 05/05/16 08:15 Room Air 05/05/16 07:08 36.8 55 18 143/83 92 Room Air 05/05/16 04:23 36.6 64 20 152/87 94 Room Air 05/05/16 04:00 Room Air 05/05/16 00:00 Room Air 05/04/16 23:44 36.9 67 20 126/77 94 Room Air 05/04/16 20:04 95 Room Air 05/04/16 16:00 95 Room Air 05/04/16 15:55 37.1 72 18 142/85 95 Room Air 05/04/16 12:02 37.2 65 18 154/87 93 05/04/16 12:00 Room Air Physical Exam General Appearance: no apparent distress Respiratory/Chest: lungs clear, normal breath sounds, no respiratory distress, no accessory muscle use Cardiovascular: regular rate, rhythm, no edema, no murmur Abdomen: normal bowel sounds, non tender, soft Extremities: normal inspection, no pedal edema Neurologic/Psychiatric: no motor/sensory deficits, alert, normal mood/affect Laboratory Results Last 24 Hours Test 05/04/16 18:25 05/05/16 06:07 White Blood Count 6.36 K/uL Red Blood Count 4.71 M/uL Hemoglobin 15.1 g/dL Hematocrit 43.0 % Mean Corpuscular Volume 91.3 fL Mean Corpuscular Hemoglobin 32.1 pg Mean Corpuscular Hemoglobin Concent 35.1 g/dl Platelet Count 245 K/uL Mean Platelet Volume 10.2 fL Neutrophils (%) (Auto) 52.5 % Lymphocytes (%) (Auto) 37.3 % Monocytes (%) (Auto) 7.5 % Eosinophils (%) (Auto) 2.0 % Basophils (%) (Auto) 0.5 % Neutrophils # (Auto) 3.34 K/uL Lymphocytes # (Auto) 2.37 K/uL Monocytes # (Auto) 0.48 K/uL Eosinophils # (Auto) 0.13 K/uL Basophils # (Auto) 0.03 K/uL RDW Standard Deviation 43.7 fL RDW Coefficient of Variation 13.0 % Immature Granulocyte % (Auto) 0.2 % Immature Granulocyte # (Auto) 0.01 K/uL Sodium Level 141 mmol/L Potassium Level 3.8 mmol/L Chloride Level 106 mmol/L Carbon Dioxide Level 26 mmol/L Anion Gap 9.0 mmol/L Blood Urea Nitrogen 12 mg/dl Creatinine 0.82 mg/dl Est Creatinine Clear Calc Drug Dose 99.4 ml/min Estimated GFR () 110.6 Estimated GFR (Non- 95.4 BUN/Creatinine Ratio 15.2 Random Glucose 90 mg/dl Calcium Level 8.6 mg/dl Assessment and Plan This is a 60 year old male presented with L occipital lobe infarct Acute Left Occipital Lobe Infarct 05/05 * Left Occipital Lobe Infarct * aspirin, statin and Plavix will be added for three months * no driving until f/u with neuro and ophthalmology * will need cardionet monitoring for one month to r/o arrhythmias * hypercoag w/up pending, can f/u as outpatient * PCP f/u with Dr. Zacarias on May 10 @ 2:10PM 05/04 * Head CT; Brain MRI confirmed the infarct * No motor dysfunction, no ambulation issues; no swallowing issues * Was not on any medications prior to arrival * started on aspirin and statin * would monitor on tele to r/o arrhythmias * neurology input for further recommendations DVT ppx * subq heparin FULL CODE
[2016-05-05] MEDS ORDERED: ASPEC81 PO (10:40)
[2016-05-05] MEDS ORDERED: PLV75 PO (10:40)
[2016-05-05] MEDS ORDERED: LPT40 PO (10:40)
--- NOTE | 2016-05-05 10:44 | Discharge Instructions ---
Discharge Instructions Admission Reason for Admission: CVA Discharge Discharge Diagnosis / Problem: Acute Left Occipital CVA Discharge Goals Goal(s): Decrease discomfort, Improve function, Diagnostic testing, Therapeutic intervention Activity Recommendations Activity Limitations: per Instructions/Follow-up section Driving or Machine Use: no driving until cleared by neuro and ophthalmology . Instructions / Follow-Up Instructions / Follow-Up Please follow-up with Dr. Zacarias on May 10 @ 2:10PM * You will be started on aspirin, Plavix and Lipitor - take as directed * Plavix may be stopped in 3 months if okay with neurology * Please follow-up with neurology as outpatient * You will need CardioNet monitoring (heart monitor system) * Please see ophthalmology * Refrain from driving until cleared by neurology and ophthalmology Current Hospital Diet Patient's current hospital diet: AHA Diet (Heart Healthy) Discharge Diet Recommended Diet: AHA Diet (Heart Healthy) Pending Studies Studies pending at discharge: yes List of pending studies: Hypercoag workup Laboratory Results Hemoglobin A1c Test 05/03/16 14:10 Range/Units Estimated Average Glucose 114 mg/dl Hemoglobin A1c 5.6 4.5-5.6 % Lipid Panel Test 05/04/16 06:28 Range/Units Triglycerides Level 58 0-150 mg/dl Cholesterol Level 134 0-200 mg/dl HDL Cholesterol 41 mg/dl Cholesterol/HDL Ratio 3.3 LDL Cholesterol, Calculated 81 mg/dl Medical Emergencies . Who to Call and When: Medical Emergencies: If at any time you feel your situation is an emergency, please call 911 immediately. . Non-Emergent Contact Non-Emergency issues call your: Primary Care Provider . . "Provider Documentation" section prepared by Clive Hampton. VTE Core Measure Inpt VTE Proph given/why not?: Unfractionated heparin SQ
--- NOTE | 2016-05-05 10:51 | Discharge Summary ---
Discharge Summary Admission Date: May 03, 2016 at 15:42 Discharge Date: May 05, 2016 Discharge Disposition: Home Principal Diagnosis: Acute Left Occipital CVA Medication Reconciliation New Medications: Aspirin (Aspirin EC Low Dose) 81 Mg Ectab 81 MG PO QAM for 90 Days, #90 TABS Atorvastatin (Atorvastatin Calcium) 40 Mg Tab 40 MG PO QAM for 90 Days, #90 TAB 1 Refill Clopidogrel Bisulfate (Clopidogrel) 75 Mg Tab 75 MG PO QAM for 90 Days, #90 TAB 0 Refills Admission Information HPI (per Admitting provider): 60 year old female who presents to the ER with right visual field deficit. 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 Patient reports his symptoms began yesterday afternoon while he was driving his truck. He reports he noticed having difficulty seeing his right visual field. He noticed that it was with objects that were close and also only when both eyes were open. When he would close one eye the symptoms resolved. He also reports an associated left temporal headache. He denies any blurred vision or double vision. He reports he felt fatigued yesterday. He denies any unilateral weakness, numbness, or tingling. He notes left calf pain a couple of days ago that has since resolved. He was evaluated by his eye doctor today who was concerned for CVA and sent the patient to the ER for further evaluation. Patient denies chest pain and shortness of breath. No lightheadedness, dizziness , diaphoresis, or syncopal events. He denies abdominal pain, nausea, vomiting, or diarrhea. No fever or chills. Denies any urinary symptoms. In the ER, patient had a CT head that is showing left occipital lobe CVA. Physical Exam (per Admitting): General Appearance: WD/WN, no apparent distress Head: normocephalic, atraumatic Eyes: normal inspection, PERRL, EOMI, + pertinent finding (Anisocoria, Decreased visual field ) ENT: normal ENT inspection, hearing grossly normal, TMs normal, pharynx normal Neck: supple, no adenopathy, trachea midline Respiratory/Chest: chest non-tender, lungs clear, normal breath sounds, no respiratory distress, no accessory muscle use Cardiovascular: regular rate, rhythm, no edema, no gallop, no JVD, no murmur , normal peripheral pulses Abdomen/GI: normal bowel sounds, non tender, soft, no organomegaly, no pulsatile mass Back: normal inspection, no CVA tenderness Extremities/Musculoskelatal: normal inspection, no calf tenderness, no pedal edema, non-tender, pelvis stable Neurologic/Psych: electorate officer II-XII nml as tested, alert, normal mood/affect, normal reflexes, oriented x 3, + pertinent finding (Anisocoria, Decreased visual field) Skin: normal color, warm/dry, no rash Lymphatic: no adenopathy Hospital Course This is a 60 year old male presented with L occipital lobe infarct Acute Left Occipital Lobe Infarct 05/05 * Left Occipital Lobe Infarct * aspirin, statin and Plavix will be added for three months * no driving until f/u with neuro and ophthalmology * will need cardionet monitoring for one month to r/o arrhythmias * hypercoag w/up pending, can f/u as outpatient * PCP f/u with Dr. Zacarias on May 10 @ 2:10PM 05/04 * Head CT; Brain MRI confirmed the infarct * No motor dysfunction, no ambulation issues; no swallowing issues * Was not on any medications prior to arrival * started on aspirin and statin * would monitor on tele to r/o arrhythmias * neurology input for further recommendations DVT ppx * subq heparin FULL CODE Total time spent on discharge = 40 minutes This includes examination of the patient, discharge planning, medication reconciliation, and communication with other providers. Discharge Instructions Please follow-up with Dr. Zacarias on May 10 @ 2:10PM * You will be started on aspirin, Plavix and Lipitor - take as directed * Plavix may be stopped in 3 months if okay with neurology * Please follow-up with neurology as outpatient * You will need CardioNet monitoring (heart monitor system) * Please see ophthalmology * Refrain from driving until cleared by neurology and ophthalmology
[2016-05-05 11:08] VITALS: BP 143/83; PULSE 55; TEMP 36.8; O2SAT 92
--- NOTE | 2016-05-05 11:56 | Pharmacy Progress Note ---
Pharmacist Stroke Counseling Date of Service May 05, 2016. Scope Pharmacy has been consulted to provide medication discharge counseling for this patient admitted with ischemic stroke/hemorrhagic stroke/ transient ischemic attack as per the Pharmacist Discharge Counseling for Stroke Patients Protocol. Medications on Discharge New Medications: Aspirin (Aspirin EC Low Dose) 81 Mg Ectab 81 MG PO QAM for 90 Days, #90 TABS Atorvastatin (Atorvastatin Calcium) 40 Mg Tab 40 MG PO QAM for 90 Days, #90 TAB 1 Refill Clopidogrel Bisulfate (Clopidogrel) 75 Mg Tab 75 MG PO QAM for 90 Days, #90 TAB 0 Refills Action The above medications, specifically ones for stroke treatment/prophylaxis, have been reviewed in detail with the patient and/or patient underwriting sales representative(s) prior to discharge. This includes indication, common adverse reactions, drug interactions, and medication administration. Medication counseling has been employed using the teach-back method to ensure understanding. Outcome The patient and/or patient underwriting sales representative(s) have demonstrated understanding of the medications. Please note, they are aware that the pharmacist will call them within 72 hours post-discharge to confirm that the appropriate medications are being taken and answer any further medication related questions the patient might have at that time. Contact information Individual to be contacted: Patient Relationship to patient (if applicable): self Phone number: [phone] Best time to call: anytime Additional comments: -All new medications for patient. Has a good support system with his . Currently trying to cut back on caffeine as he said he regularly drinks 10-12 cups a day. We discussed that in addition to medication compliance, cutting back on the caffeine to 1-2 cups per day would be much better. Thank you for allowing pharmacy to be involved in the care of this patient. Please call [phone] or [phone] with any additional questions
--- NOTE | 2016-05-08 11:49 | Pharmacy Progress Note ---
Pharmacist Post D/C Phone Note Date of phone call: May 08, 2016. Individual with whom pharmacist spoke to: First spoke with spouse, Crissy, and then spoke in detail with the patient, Rodolfo The following questions were reviewed during the phone call with responses listed below each: Can you tell me the medications that you are currently taking as well as when and how you take each medication? - Patient reports taking aspirin, clopidogrel and atorvastatin. He takes them in the morning at approximately 0800 hours When have you missed any doses of your medications? - Today is day #3 since discharge. He has not missed any doses and has taken them on time each day What side effects are you having from your medications? - "I really haven't noticed any side effects from these medications" What questions do you have about your medications? - He paused and said he really did not come up with any new questions What problems are you having obtaining your medications? - No problem obtaining the medications. He reported that he was issued the generic brand for atorvastatin and clopidogrel. When is your next appointment with your primary care doctor? - Rodolfo sees Dr Zacarias on Sunday, May 10, 2016 at 1410 hours Additional comments: - Patient reported that his symptoms have improved with his right eye bluriness, however, still knows there is an issue there - We discussed the importance of compliance in maximizing the protective effect with the aspirin, atorvastatin and clopidogrel regimen which he stated he is committed to. Medications Dose Route/Sig Max Daily Dose Days Date Category Aspirin EC Low Dose (Aspirin) 81 Mg Ectab 81 Mg PO QAM 90 05/05/16 Rx Atorvastatin Calcium (Atorvastatin) 40 Mg Tab 40 Mg PO QAM 90 05/05/16 Rx Clopidogrel (Clopidogrel Bisulfate) 75 Mg Tab 75 Mg PO QAM 90 05/05/16 Rx As per the Pharmacist Discharge Counseling for Stroke Patients Protocol, this phone call has been completed within 72 hours of discharge. Thank you for allowing us to be involved in the care of this patient.
[2016-05-09 18:31] LABS: ANTITHROMBINIII ACTIVITY** 89 % activity (80-120); B2 GLYCOPROTEIN IGA <9 SAU (<=20); B2 GLYCOPROTEIN IGG <9 SGU (<=20); B2 GLYCOPROTEIN IGM <9 SMU (<=20); LUPUS ANTICOAGULANT** TC36573X Negative (Negative); PROTEIN C ACTIVITY** TC 1777X 108 % (70-180); PROTEIN S ACT(FUNCT)**1779X 92 % (70-150)
== END 2016-05-05 11:45 | disposition home or self-care (01) | DRG 66 ==
LOC: ENRESERVTM → ENRESERVDT → C.EDB 13:51 → C.MED 15:42
PROVIDERS: ADMIT Internal Medicine; ATTEND Family Medicine
DX: I63.9 Cerebral infarction, unspecified (principal); Z87.891 Personal history of nicotine dependence